=== PATIENT | female | born 1970 | race Caucasian/White ===

== ENCOUNTER 2021-09-03 17:17 | Outpatient (CLI) | payer OTHER ==
[2021-09-04 07:41] LABS: SARS-CoV-2 PCR by NAA Not Detected (NotDetected)
== END 2021-09-03 17:18 | disposition home or self-care (01) ==
LOC: CSHLAB 17:17
PROVIDERS: ATTEND Surgery
DX: Z20.822 Contact with and (suspected) exposure to COVID-19 (principal); K60.3 Anal fistula
CPT/HCPCS: U0003; U0005

== ENCOUNTER → 2021-09-05 | Day surgery (SDC) | payer OTHER ==
[2021-09-04 13:18] VITALS: BMI 20.9
[~2021-09-05] MED LIST: Bupivacaine PF 0.5% 30 ML VIAL ONE; EPINEPHrine 1 MG/ML AMP ONE; Lidocaine 2% Jelly 5 ML TUBE ONE
[2021-09-05 12:25] LABS: Potassium 2.3 mmol/L (3.5-5.1)
== END ==
LOC: CSHSDC 10:06
PROVIDERS: ATTEND Surgery
DX: K60.2 Anal fissure, unspecified (principal); Z53.09 Procedure and treatment not carried out because of other contraindication
CPT/HCPCS: 36415; 84132; J0171; S0020

== ENCOUNTER 2021-09-23 17:24 | Outpatient (CLI) | payer OTHER | END 2021-09-23 17:25 | disposition home or self-care (01) | LOC: CSHLAB 17:24 | PROVIDERS: ATTEND Surgery | DX: Z20.822 Contact with and (suspected) exposure to COVID-19 (principal); K60.3 Anal fistula | CPT/HCPCS: U0003; U0005 ==

== ENCOUNTER 2021-09-26 06:01 | Day surgery (SDC) | payer OTHER ==
[2021-09-23 12:29] VITALS: BMI 21.4
[2021-09-26 08:01] LABS: Potassium 2.7 mmol/L (3.5-5.1)
[2021-09-26] MEDS ORDERED: Lidocaine 1% MPF 2 ML VIAL ONE (08:32)
[2021-09-26] MEDS ORDERED: Potassium Chloride 40 MEQ in Sodium Chloride 0.9% 500 ML IVPB SCH (09:15)
[2021-09-26] MEDS ORDERED: EPINEPHrine 1 MG/ML AMP ONE (12:11)
[2021-09-26] MEDS ORDERED: Bupivacaine PF 0.5% 30 ML VIAL ONE (12:11)
[2021-09-26] MEDS ORDERED: CEFAZOLIN 1 GM VIAL ONE (12:19)
[2021-09-26] MEDS ORDERED: Fentanyl 100 MCG/2 ML VIAL ONE ×2 (13:11→14:09)
[2021-09-26] MEDS ORDERED: PROPOFOL 20 ML ONE (13:11)
[2021-09-26] MEDS ORDERED: Midazolam HCl 2 mg/2 ml Vial ONE (13:11)
[2021-09-26] MEDS ORDERED: Ondansetron PF 4 MG/2 ML Vial ONE (13:11)
[2021-09-26] MEDS ORDERED: Lidocaine 1% PF 5 ML VIAL ONE (13:11)
[2021-09-26] MEDS ORDERED: traMADol HCl 50 MG TAB PO PRN (13:26)
[2021-09-26] MEDS ORDERED: Acetaminophen 325 MG TAB PO PRN (13:26)
[2021-09-26] MEDS ORDERED: Lidocaine 2% Jelly 5 ML TUBE ONE (13:53)
[2021-09-26] MEDS ORDERED: traMADol HCl 50 MG TAB ONE (15:20)
== END 2021-09-26 16:05 | disposition home or self-care (01) ==
LOC: CSHSDC 06:01
PROVIDERS: ATTEND Surgery
PROC: 0D8R3ZZ Division of Anal Sphincter, Percutaneous Approach (ICD-10-PCS; principal; 2021-09-26)
DX: K60.2 Anal fissure, unspecified (principal); K64.4 Residual hemorrhoidal skin tags; K64.8 Other hemorrhoids; K50.90 Crohn's disease, unspecified, without complications; D64.9 Anemia, unspecified; E78.00 Pure hypercholesterolemia, unspecified; F17.210 Nicotine dependence, cigarettes, uncomplicated; Z79.899 Other long term (current) drug therapy; Z88.5 Allergy status to narcotic agent; Z91.040 Latex allergy status; Z91.048 Other nonmedicinal substance allergy status; Z86.010 Personal history of colon polyps
CPT/HCPCS: 36415; 84132; 93005; 93010; J0171; J0690; J2250; J2405; J2704; J3010; J3480; J7030; S0020